=== PATIENT | male | born 1945 | race Caucasian/White ===

== ENCOUNTER 2021-08-05 19:12 | Inpatient (IN) | payer MEDICARE, OTHER ==
[2021-08-05 23:03] VITALS: BMI 28.8
[2021-08-06] MEDS ORDERED: Ondansetron PF 4 MG/2 ML Vial IVP PRN (08:44)
[2021-08-06] MEDS ORDERED: Acetaminophen 325 MG TAB PO PRN (08:49)
[2021-08-06] MEDS ORDERED: Pharmacy to Dose REMDESIVIR PO SCH (09:00)
[2021-08-06] MEDS ORDERED: Dexamethasone 6 MG in Sodium Chloride 0.9% 50 ML IVPB SCH (09:00)
[2021-08-06] MEDS: Zinc Sulfate 220 MG CAP PO SCH (09:20)
[2021-08-06] MEDS: Enoxaparin Sodium 40 MG/0.4 ML SYRINGE SC SCH ×2 (09:20→20:24)
[2021-08-06] MEDS: Dexamethasone 4 mg/ml Vial SLOW IVP SCH (09:24)
[2021-08-06] MEDS: Albuterol 200 PUFF (6.7GM INHALER) INH SCH ×2 (18:52→20:25)
[2021-08-06] MEDS: Cholecalciferol 1,000 UNITS (25 MCG) TAB PO SCH (20:24)
[2021-08-07] MEDS: Albuterol 200 PUFF (6.7GM INHALER) INH SCH ×6 (02:35→20:23)
[2021-08-07 06:10] LABS: #Eosinphils 0.1 thou/uL (0.0-0.7); #Lymphocytes 1.7 thou/uL (1.20-3.40); #Monocytes 1.3 thou/uL (0.11-0.59); #Neutrophils 7.3 thou/uL (1.40-6.50); %Basophils 0.5 % (0.0-1.0); %Eosinophils 1.2 % (0.0-10.0); %Lymphocytes 16.4 % (21.0-51.0); %Monocytes 12.2 % (0.0-10.0); %Neutrophils 69.7 % (42.0-75.0); Hemoglobin 14.2 g/dL (14.0-18.0); Mean Corpuscular HGB CONC 31.5 g/dL (32.0-36.0); Mean Corpuscular Hemoglobin 29.3 pg (27.0-31.0); Mean Corpuscular Volume 92.9 fL (78.0-98.0); Mean Platelet Volume 7.4 fL (7.4-10.4); Platelet Count 424 thou/uL (130-400); RBC Distribution Width 11.5 % (11.5-14.5); Red Blood Cell (RBC) Count 4.84 mill/uL (4.70-6.10); White Blood Cell (WBC) Count 10.5 thou/uL (4.8-10.8)
[2021-08-07 06:30] LABS: Anion Gap 10 mmol/L (10-20); BUN (Urea Nitrogen) 20 mg/dL (8.4-25.7); Calc. Creatinine Clearance 114 mL/min (70-130); Calcium 9.2 mg/dL (7.8-10.44); Carbon Dioxide 32 mmol/L (23-31); Chloride 100 mmol/L (98-107); Glucose 103 mg/dL (83-110); Potassium 3.5 mmol/L (3.5-5.1); Sodium 138 mmol/L (136-145)
[2021-08-07] MEDS: Zinc Sulfate 220 MG CAP PO SCH (09:01)
[2021-08-07] MEDS: Ascorbic Acid 500 mg Chewable Tablet PO SCH (09:01)
[2021-08-07] MEDS: Dexamethasone 4 mg/ml Vial SLOW IVP SCH (09:01)
[2021-08-07] MEDS: Enoxaparin Sodium 40 MG/0.4 ML SYRINGE SC SCH ×2 (09:01→20:23)
[2021-08-07] MEDS ORDERED: Potassium Chloride 20 MEQ TAB PO SCH (09:15)
[2021-08-07] MEDS: Cholecalciferol 1,000 UNITS (25 MCG) TAB PO SCH (20:23)
[2021-08-08] MEDS: Albuterol 200 PUFF (6.7GM INHALER) INH SCH ×3 (02:35→11:50)
[2021-08-08 05:52] LABS: #Basophils 0.1 thou/uL (0.0-0.2); #Eosinphils 0.1 thou/uL (0.0-0.7); #Lymphocytes 2.1 thou/uL (1.20-3.40); #Monocytes 0.7 thou/uL (0.11-0.59); #Neutrophils 5.4 thou/uL (1.40-6.50); %Basophils 0.7 % (0.0-1.0); %Eosinophils 1.7 % (0.0-10.0); %Lymphocytes 25.4 % (21.0-51.0); %Neutrophils 64.2 % (42.0-75.0); Hemoglobin 13.3 g/dL (14.0-18.0); Mean Corpuscular HGB CONC 33.3 g/dL (32.0-36.0); Mean Corpuscular Hemoglobin 30.8 pg (27.0-31.0); Mean Corpuscular Volume 92.7 fL (78.0-98.0); Mean Platelet Volume 7.5 fL (7.4-10.4); Platelet Count 422 thou/uL (130-400); RBC Distribution Width 11.3 % (11.5-14.5); White Blood Cell (WBC) Count 8.4 thou/uL (4.8-10.8)
[2021-08-08 06:27] LABS: Anion Gap 9 mmol/L (10-20); BUN (Urea Nitrogen) 13 mg/dL (8.4-25.7); Calc. Creatinine Clearance 124 mL/min (70-130); Calcium 9.2 mg/dL (7.8-10.44); Carbon Dioxide 31 mmol/L (23-31); Chloride 101 mmol/L (98-107); Glucose 102 mg/dL (83-110); Potassium 3.4 mmol/L (3.5-5.1); Sodium 138 mmol/L (136-145)
[2021-08-08] MEDS: Enoxaparin Sodium 40 MG/0.4 ML SYRINGE SC SCH (08:28)
[2021-08-08] MEDS: Zinc Sulfate 220 MG CAP PO SCH (08:29)
[2021-08-08] MEDS: Ascorbic Acid 500 mg Chewable Tablet PO SCH (08:29)
[2021-08-08] MEDS: Dexamethasone 4 mg/ml Vial SLOW IVP SCH (08:29)
[2021-08-08] MEDS ORDERED: Potassium Chloride 20 MEQ TAB PO SCH (11:38)
[2021-08-08 12:28] VITALS: BP 176/85; TEMP 97.7
== END 2021-08-08 14:27 | disposition home or self-care (01) | DRG 177 ==
LOC: 2SW 19:12 → OBSVTOIN 08-06 08:44
PROVIDERS: ADMIT Internal Medicine; ATTEND Internal Medicine
PROC: 8E0ZXY6 Isolation (ICD-10-PCS; principal; 2021-08-06)
PROC: 3E0333Z Introduction of Anti-inflammatory into Peripheral Vein, Percutaneous Approach (ICD-10-PCS; 2021-08-06)
DX: U07.1 COVID-19 (principal); J12.82 Pneumonia due to coronavirus disease 2019; J96.01 Acute respiratory failure with hypoxia; Z85.828 Personal history of other malignant neoplasm of skin; Z97.0 Presence of artificial eye; Z91.048 Other nonmedicinal substance allergy status
CPT/HCPCS: 36415; 80048; 85025; J1100; J1650